=== PATIENT | male | born 1980 ===

== ENCOUNTER 2021-02-09 11:50 | Emergency (ER) | payer SELFPAY ==
[2021-02-09] MEDS ORDERED: LIDOCAINE (1%) 10 MG/1 ML VIAL 20 ML MDV INFILTRATI ONE (12:19)
[2021-02-09] MEDS ORDERED: TETANUS,DIPH,PERTUSS(ACELL) VACCINE 0.5 ML SYRINGE IM ONE (12:19)
--- NOTE | 2021-02-09 12:32 | Emergency Department Report ---
- General Chief Complaint: Wound/Laceration Stated Complaint: RIGHT HAND WRIST LAC Time Seen by Provider: 02/09/21 12:13 Source: patient Mode of arrival: Ambulatory Limitations: Language Barrier - History of Present Illness Initial Comments: 41-year-old male presents to the ER today with complaints of laceration to his right wrist. 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 Patient reports laceration to the volar aspect of his right. He states he is not up-to-date on his tetanus. He reports pain mainly around the laceration but otherwise denies any numbness, tingling or weakness. He reports pain with range of motion of the wrist but otherwise he is able to move the wrist. 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) Location: other (rigth wrist) - Related Data Previous Rx's Medication Instructions Recorded Last Taken Type Ibuprofen [Motrin] 600 mg PO Q8H PRN #30 tablet 02/09/21 Unknown Rx cephALEXin [Keflex] 500 mg PO Q8HR #21 cap 02/09/21 Unknown Rx Allergies Allergy/AdvReac Type Severity Reaction Status Date / Time No Known Allergies Allergy Verified 02/09/21 12:00 ED Review of Systems ROS: Stated complaint: RIGHT HAND WRIST LAC Other details as noted in HPI Comment: All other systems reviewed and negative Constitutional: denies: chills, fever Eyes: denies: eye pain, eye discharge, vision change ENT: denies: ear pain, throat pain Respiratory: denies: cough, shortness of breath, SOB with exertion, SOB at rest, wheezing Cardiovascular: denies: chest pain, palpitations, dyspnea on exertion, edema, syncope, paroxysmal nocturnal dyspnea Gastrointestinal: denies: abdominal pain, nausea, vomiting, diarrhea, constipation, hematemesis, melena, hematochezia Genitourinary: denies: urgency, dysuria Musculoskeletal: arthralgia. denies: back pain, joint swelling, myalgia Skin: other (Laceration to wrist) Neurological: denies: headache, weakness, numbness, paresthesias, confusion, abnormal gait, vertigo Psychiatric: denies: anxiety, depression, auditory hallucinations, visual hallucinations, homicidal thoughts, suicidal thoughts Hematological/Lymphatic: denies: easy bleeding, easy bruising, swollen glands ED Past Medical Hx - Social History Smoking Status: Never Smoker Substance Use Type: None - Medications Home Medications: Home Medications Medication Instructions Recorded Confirmed Last Taken Type Ibuprofen [Motrin] 600 mg PO Q8H PRN #30 tablet 02/09/21 Unknown Rx cephALEXin [Keflex] 500 mg PO Q8HR #21 cap 02/09/21 Unknown Rx ED Physical Exam - General Limitations: Language Barrier General appearance: alert, in no apparent distress - Head Head exam: Present: atraumatic, normocephalic, normal inspection - Eye Eye exam: Present: normal appearance, PERRL, EOMI Pupils: Present: normal accommodation - Respiratory Respiratory exam: Absent: respiratory distress - Cardiovascular Cardiovascular Exam: Present: regular rate - Expanded Upper Extremity Exam Right Forearm Wrist exam: Present: full ROM, tenderness (Mainly around the laceration to the volar wrist), laceration (Approximately 3 cm linear vertical but slightly diagonal laceration noted to the volar aspect of the wrist. Patient apparently packed the wound with some white residue. This was irrigated out. Mild to moderate bleeding but this was controlled with pressure.). Absent: swelling, abrasion, ecchymosis, deformity, crepidus, dislocation, erythema Neuro motor exam: Present: wrist extension intact, thumb opposition intact, thumb IP flexion intact, thumb adduction intact, fingers 2-5 abduction intact Neurosensory exam: Present: radial nerve intact, ulnar nerve intact, median nerve intact Vascular: Present: normal capillary refill. Absent: vascular compromise - Neurological Exam Neurological exam: Present: alert, oriented X3, CN II-XII intact, normal gait - Psychiatric Psychiatric exam: Present: normal affect, normal mood ED Course Vital Signs 02/09/21 02/09/21 11:59 12:00 Temperature 97.7 F 98.0 F Pulse Rate 82 89 Respiratory 12 18 Rate Blood Pressure 135/95 Blood Pressure 129/73 [Right] O2 Sat by Pulse 98 98 Oximetry - Laceration /Wound Repair Right Volar Wrist Wound Location: upper extremity (right volar wrist) Wound's Depth, Shape: superficial, linear Wound Explored: contaminated Irrigated w/ Saline (ccs): 100 Betadine Prep?: Yes Anesthesia: 1% Lidocaine Volume Anesthetic (ccs): 7 Wound Debrided: minimal Wound Repaired With: sutures Suture Size/Type: 4:0, nylon Number of Sutures: 7 Sterile Dressing Applied?: Yes ED Medical Decision Making - Radiology Data Radiology results: report reviewed Patient: OLAF VO MR#: [id number] : 1980 Acct:[id number] Age/Sex: 41 / M ADM Date: 02/09/21 Loc: ED Attending Dr: Ordering Physician: JOSE MARTIN BAZZI Date of Service: 02/09/21 Procedure(s): XR wrist 3+V RT Accession Number(s): [id number] cc: JOSE MARTIN BAZZI Fluoro Time In Minutes: RIGHT WRIST 4 VIEW(S) INDICATION / CLINICAL INFORMATION: laceration wrist from metal COMPARISON: None available. FINDINGS: BONES / JOINT(S): No acute fracture or subluxation. No significant arthritis. SOFT TISSUES: Soft tissue laceration on the palmar aspect of the wrist at the level of the radiocarpal joint. No radiopaque foreign body. ADDITIONAL FINDINGS: None. Signer Name: Loren Rendon MD Signed: 02/09/2021 1:26 PM Workstation Name: [id number] Transcribed By: DT Dictated By: Massimo Rendon MD Electronically Authenticated By: Massimo Rendon MD Signed Date/Time: 02/09/21 1326 DD/ 1325 TD/TT: Critical care attestation.: If time is entered above; I have spent that time in minutes in the direct care of this critically ill patient, excluding procedure time. ED Disposition Clinical Impression: Laceration of wrist Disposition: DC-01 TO HOME OR SELFCARE Is pt being admited?: No Does the pt Need Aspirin: No Condition: Stable Instructions: Laceration Care, Adult, [id number], Sutures, [place], or Adhesive Wound Closure, [id number] Additional Instructions: Keep the wound clean daily with soap and water. Do not use peroxide or alcohol. After cleaning dry well and apply a thin layer of Neosporin. Sutures will need to be removed in about 10 days. Take the Motrin and the antibiotic as prescribed. Return to the ER if your symptoms changes or worsens in any way. Prescriptions: cephALEXin [Keflex] 500 mg PO Q8HR #21 cap Ibuprofen [Motrin] 600 mg PO Q8H PRN #30 tablet PRN Reason: Pain Referrals: JAQUELIN SAWYER MD [Staff Physician] - 7-10 days (Follow-up with the primary care doctor in 10 days for suture removal) Forms: Work/School Release Form(ED) Time of Disposition: 14:21
--- NOTE | 2021-02-09 13:30 | XRay Report ---
RIGHT WRIST 4 VIEW(S) INDICATION / CLINICAL INFORMATION: laceration wrist from metal COMPARISON: None available. FINDINGS: BONES / JOINT(S): No acute fracture or subluxation. No significant arthritis. SOFT TISSUES: Soft tissue laceration on the palmar aspect of the wrist at the level of the radiocarpa l joint. No radiopaque foreign body. ADDITIONAL FINDINGS: None. Signer Name: Loren Rendon MD Signed: 02/09/2021 1:26 PM Workstation Name: [id number]
[2021-02-09] MEDS ORDERED: NEOMY 3.5 MG/BACIT 400 UNITS/POLY B 5000 UNITS/GM OINT PACKET TP ONE (14:21)
[2021-02-09 15:10] VITALS: BP 129/73
== END 2021-02-09 15:12 | disposition home or self-care (01) ==
LOC: ED 11:50
DX: S61.511A Laceration without foreign body of right wrist, initial encounter (principal); Z79.899 Other long term (current) drug therapy; W26.8XXA Contact with other sharp object(s), not elsewhere classified, initial encounter; Y93.89 Activity, other specified; Y92.89 Other specified places as the place of occurrence of the external cause; Y99.8 Other external cause status
CPT/HCPCS: 12032; 73110; 99283; A6250